=== PATIENT | male | born 1995 | race African-American/Black ===

== ENCOUNTER 2020-12-31 22:28 | Emergency (ER) | payer MEDICAID ==
[~2020-12-31] VITALS: Ht 190.5 cm; Wt 97.9 kg
[2021-01-01] MEDS ORDERED: NAPR-681 PO (02:22)
[2021-01-01 02:37] VITALS: BP 116/66
== END 2021-01-01 02:38 | disposition home or self-care (01) ==
LOC: ER 22:55
DX: S80.812A Abrasion, left lower leg, initial encounter (principal); M54.9 Dorsalgia, unspecified; M79.662 Pain in left lower leg; V49.49XA Driver injured in collision with other motor vehicles in traffic accident, initial encounter; Y93.89 Activity, other specified; Y92.410 Unspecified street and highway as the place of occurrence of the external cause
CPT/HCPCS: 72100; 73562; 99284

== ENCOUNTER 2023-02-28 18:42 | Emergency (ER) | payer SELFPAY ==
[~2023-02-28] VITALS: Ht 190.5 cm; Wt 95.0 kg
[~2023-02-28 18:42] MED LIST: NAPR-681 PO
[2023-02-28 18:53] VITALS: BP 139/86; PULSE 99; RESP 17; TEMP 98.9; O2SAT 100
== END 2023-02-28 19:37 | disposition home or self-care (01) ==
LOC: ER 18:42
DX: R19.7 Diarrhea, unspecified (principal); R11.2 Nausea with vomiting, unspecified
CPT/HCPCS: 99281

== ENCOUNTER 2024-01-07 19:57 | Emergency (ER) | payer MEDICAID ==
[~2024-01-07] VITALS: Ht 188 cm; Wt 107.0 kg
[2024-01-07 20:21] VITALS: O2SAT 100
[2024-01-07] MEDS: ONDANSETRON 4MG ODT PO ONE (20:45)
[2024-01-07] MEDS: LORAZEPAM 0.5MG TABLET PO ONE (21:16)
[2024-01-07] MEDS: CLONIDINE 0.1MG TABLET PO ONE (21:17)
[2024-01-07] MEDS ORDERED: ONDA4TAB50 MT (22:09)
[2024-01-07 22:15] VITALS: BP 135/68; PULSE 71; RESP 16; TEMP 36.39180; O2SAT 99
== END 2024-01-07 22:15 | disposition home or self-care (01) ==
LOC: ER 19:57
DX: F11.23 Opioid dependence with withdrawal (principal)
CPT/HCPCS: 99284; Q0162